=== PATIENT | female | born 1950 | race Caucasian/White ===

== ENCOUNTER 2023-11-19 14:34 | Emergency (ER) | payer OTHER, MEDICARE ==
[2023-11-19 14:42] VITALS: BP 152/91; PULSE 70; RESP 16; TEMP 98.6; BMI 24.7
== END 2023-11-19 15:49 | disposition home or self-care (01) ==
LOC: FER 14:34
DX: L03.032 Cellulitis of left toe (principal)
CPT/HCPCS: 99283-25

== ENCOUNTER 2024-05-23 07:30 | Day surgery (SDC) | payer OTHER, MEDICARE ==
[2024-05-21 12:45] VITALS: BMI 26.5
[2024-05-23] MEDS: PHENYLEPHRINE 2.5% OPTHALMIC DROP 2ML BOTTLE ONE (08:10)
[2024-05-23] MEDS: CIPROFLOXACIN 0.3% EYE DROPS 5 ML BOTTLE ONE (08:10)
[2024-05-23] MEDS: CYCLOPENTOLATE 2% OPHTH SOLN 2 ML BOTTLE ONE (08:10)
[2024-05-23] MEDS: TROPICAMIDE 1% 3 ML EYE DROPS ONE (08:10)
[2024-05-23] MEDS ORDERED: MANNITOL IVPB ONE (08:55)
[2024-05-23] MEDS ORDERED: CARBACHOL 0.01% INTRA-OCULAR 1.5 ML VIAL ONE (09:08)
[2024-05-23] MEDS ORDERED: BSS (NA/CA/MG/K) BALANCED SALT SOLUTION OPHTH SOLN 15 ML BOTTLE ONE (09:08)
[2024-05-23] MEDS ORDERED: NEO/POLYMYX B SULF/DEXAMETH OPHTHALMIC 5ML BOTTLE ONE (09:08)
[2024-05-23] MEDS ORDERED: LIDOCAINE 1% P/F 10 MG/ML VIAL ONE (09:08)
[2024-05-23] MEDS ORDERED: EPINEPHrine 1:1000 P/F - 1 MG/ML AMP ONE (09:08)
[2024-05-23] MEDS ORDERED: TETRACAINE 0.5% OPHTH SOLN 2 ML BOTTLE ONE (09:08)
[2024-05-23] MEDS: MANNITOL IVPB ONE (09:09)
[2024-05-23] MEDS ORDERED: MIDAZOLAM HCL 2 MG/2 ML SINGLE DOSE VIAL ONE ×2 (10:45→11:31)
[2024-05-23] MEDS ORDERED: PHENYLEPHRINE/KETOROLAC 4 ML VIAL IO ONE (10:55)
[2024-05-23] MEDS ORDERED: EPI-SHUGARCAINE (EPINEPHRINE 0.025% & LIDOCAINE-PF 0.75%) 4ML ONE (10:55)
[2024-05-23 12:17] VITALS: RESP 18; TEMP 98
[2024-05-23 12:22] VITALS: BP 110/66; PULSE 89
== END 2024-05-23 12:30 | disposition home or self-care (01) ==
LOC: FASU 07:30
PROVIDERS: ATTEND Ophthalmology
PROC: 08RJ3JZ Replacement of Right Lens with Synthetic Substitute, Percutaneous Approach (ICD-10-PCS; principal; 2024-05-23 11:20)
DX: H26.8 Other specified cataract (principal)
CPT/HCPCS: 66984; V2632; 82962; J1097